=== PATIENT | female | born 1990 | race Two or more races ===

== ENCOUNTER 2023-08-08 14:46 | Emergency (ER) | payer OTHER ==
[~2023-08-08] VITALS: Ht 167.6 cm; Wt 70.3 kg
[2023-08-08] MEDS ORDERED: FAMOTIDINE/PF 20 MG in 0.9 % SODIUM CHLORIDE 8 ML IV PUSH STA (15:16)
[2023-08-08] MEDS ORDERED: CETIRIZINE HCL 5 MG/5 ML ML PO ONE (15:30)
[2023-08-08 15:39] LABS: HEMATOCRIT 34.2 % (36.0-45.00); HEMOGLOBIN 11.5 g/dL (12.0-15.00); MEAN CELL VOLUME 90.8 fL (80.00-100.00); MEAN CORPUSCULAR HEMOGLOBIN 30.4 pg (27.00-32.0); MEAN CORPUSCULAR HGB CONC 33.5 g/dl (32.0-36.0); PLATELET COUNT 337 K/uL (150-450); RED BLOOD COUNT 3.77 M/uL (4.00-6.00); RED CELL DISTRIBUTION WIDTH 14.3 % (11.5-14.5)
[2023-08-08] MEDS ORDERED: ZITHROMAX500 MG PO (16:40)
== END 2023-08-08 16:44 | disposition home or self-care (01) ==
LOC: ER 14:47
PROVIDERS: General Practice
DX: B34.9 Viral infection, unspecified (principal); Z20.822 Contact with and (suspected) exposure to COVID-19; Z91.013 Allergy to seafood